=== PATIENT | female | born 1970 | race Hispanic/Latino ===

== ENCOUNTER 2025-02-09 00:38 | Emergency (ER) | payer SELFPAY ==
[~2025-02-09] VITALS: Ht 134.6 cm; Wt 120.2 kg
[2025-02-09 01:17] LABS: BASOPHILS % 0.5 % (0.0-1.0); EOSINOPHILS % 0.0 % (0.0-6.0); LYMPHOCYTES % 22.1 % (18.0-39.1); MONOCYTES % 5.1 % (4.4-11.3); NEUTROPHILS % 72.0 % (38.7-80.0); RED CELL DISTRIBUTION WIDTH 13.1 % (11.7-14.4)
[2025-02-09] MEDS ORDERED: LIDOCAINE VISC 2% SOLN 15 ML UDC ONE (01:17)
[2025-02-09] MEDS ORDERED: BELLADONNA ALK/PHENOBARBITAL 5 ML UDC ONE (01:17)
[2025-02-09] MEDS ORDERED: MAGNESIUM/ALUMINUM/SIMETHICONE 30 ML UDC ONE (01:18)
[2025-02-09] MEDS: SODIUM CHLORIDE 0.9% 1000ML 1,000 ML IV ONE (01:35)
[2025-02-09] MEDS: DONNATAL/LIDOCAINE/MAALOX 30 ML SUSP PO ONE (01:35)
[2025-02-09] MEDS: ONDANSETRON HCL INJ 2MG/ML 2ML 2 MG/ML VIAL IV STA (01:35)
[2025-02-09] MEDS: FAMOTIDINE 20 MG/2 ML VIAL IV STA (01:35)
[2025-02-09] MEDS: SUCRALFATE 1 GM TAB PO STA (01:35)
[2025-02-09 01:37] LABS: LEUKOCYTE ESTERASE ,URINE NEGATIVE (NEGATIVE); PROTEIN,URINE DIPSTICK NEGATIVE (NEGATIVE); URINE UROBILINOGEN 0.2 mg/dL (0.2 - 1)
[2025-02-09 01:39] LABS: WBC,URINE (MAN) 0-5 /HPF (0-5)
[2025-02-09 01:40] LABS: EPITHELIAL CELLS,URINE MODERATE /LPF
[2025-02-09 01:43] LABS: EST GLOMERULAR FILTRATION RATE 105.0 ML/MIN (>=60)
[2025-02-09] MEDS ORDERED: IOPAMIDOL 370 MG/ML 100 ML INFUS..BTL INJ ONE (02:00)
[2025-02-09] MEDS ORDERED: PEPCID20 MG PO (04:01)
[2025-02-09] MEDS ORDERED: ONDANSETRON ODT4 MG PO (04:01)
[2025-02-09] MEDS ORDERED: CARAFATE1 GM PO (04:01)
[2025-02-09 04:18] VITALS: PULSE 74; RESP 20; TEMP 98.5; O2SAT 95
== END 2025-02-09 04:25 | disposition home or self-care (01) ==
LOC: ER 00:47
DX: R10.13 Epigastric pain (principal); K29.70 Gastritis, unspecified, without bleeding; K80.20 Calculus of gallbladder without cholecystitis without obstruction; R11.2 Nausea with vomiting, unspecified; K76.0 Fatty (change of) liver, not elsewhere classified; E66.9 Obesity, unspecified; R94.31 Abnormal electrocardiogram [ECG] [EKG]
CPT/HCPCS: 36415; 74177; 80053; 81001; 83690; 85025; 93005; 99284; J1308; J2405; J7030; Q9967